=== PATIENT | female | born 1995 | race African-American/Black ===

== ENCOUNTER 2023-05-16 04:38 | Observation (INO) | payer BC, MEDICAID, SELFPAY ==
--- NOTE | ~2023-05-16 | US_ITS ---
Limited pelvic ultrasound. Clinical History: Second trimester , bleeding, placental evaluation Technique: Realtime transabdominal scanning of the pelvis was performed. Color flow Doppler and Doppl er spectral analysis were performed. Findings: The uterus is anteverted, and contains an intrauterine gestation with cephalic lie. h eart rate is 138 bpm. Placenta is anteriorly located. Cervix is closed, measuring 3. Centimeters in l ength. Neither ovary seen. No adnexal mass seen. There is no evidence of free fluid in the cul de sac. Impression: Live intrauterine gestation, with heart rate of 138 bpm and cephalic lie. Anterior placenta. Reviewed, dictated and finalized at location M. Impression: Live intrauterine gestation, with heart rate of 138 bpm and cephalic lie. Anterior placenta.
--- NOTE | 2023-05-16 04:38 | OBADM ---
This patient, Tiffany Pal, admitted to the OB room [facility] for observation. Patient/family oriented to hospital policies and general routines including ID bracelet, bed and alarms, visiting hours, pain management, procedures, bathroom and other care routines, personal items, smoking policy, room service/diet, and visiting hours. Patient/Family are encouraged to report perceived risks to care and to ask questions if they do not understand what they are told or what they should do.
[2023-05-16 05:10] VITALS: TEMP 36.9; BMI 25.2
[2023-05-16 05:12] VITALS: BP 119/67; PULSE 66
[2023-05-16 05:17] LABS: Appearance Urine Turbid (Clear); Bacteria Urine None Seen /hpf; Bilirubin Urine Negative (Negative); Blood Urine 3+ (Negative); Color Urine Yellow (Yellow); Glucose Urine UA Negative (Negative); Ketones Urine Negative (Negative); Leukocyte Esterase Ur 3+ LEU/UL (NEGATIVE); Nitrate Urine Negative (Negative); Non Pathogenic Casts 0-2; Protein Urine 2+ mg/dL (Negative); RBC Urine >100 /hpf (0-2); Specific Grav Ur 1.012 (1.001-1.035); Squamous Epithelial Cell Urine None seen /hpf (Few); WBC Urine >100 /hpf (0-3)
[2023-05-16 05:19] LABS: Add Urine Microscopic? YES
--- NOTE | 2023-05-16 05:28 | PC.NURSE ---
Called Dr. Pike with pt admission. Informed of pt complaining of bleeding. Unsure if bleeding was vaginal or in her urine. Visual inspection of vagina with no bleeding noted. UA results given. No contractions seen on monitor. heart tones 140's and movement audible. Pt states that she has constant pain on her right side that worsens when urinating. Pt complains of frequency of urination and burning. Orders received.
[2023-05-16] MEDS: LACTATED RINGERS 1,000 ML 999 ML IV CONT (06:02)
[2023-05-16] MEDS: PHENAZOPYRIDINE HCL 100 MG TABLET 200 MG PO (06:17)
--- NOTE | 2023-05-16 08:23 | PC.NURSE ---
0710--to US per wheelchair.
--- NOTE | 2023-05-16 08:23 | PC.NURSE ---
0815--Dr. Pike at bedside. SVE performed-closed cervix. Discharge orders given. Macrobid prescription sent to pharmacy.
--- NOTE | 2023-05-16 11:42 | P.HP_ITS ---
H&P: HPI History of Present Illness Date/Time: 05/16/23 11:43 Chief Complaint: Cramping and bleeding Narrative: Patient is a G 3 P 2 at approximately 22 weeks presented to [facility] via ambulance for onset of lower abdominal cramping and had bleeding with urination. She denies fever or chills. She had urinary urgency. She has had a UTI years ago, no h/o frequent UTI or kidney stones. On L and D no significant contractions note. Reassuring heart tones. She states she has been hydrating well. On arrival to L [facility] urine was grossly hematuric and no blood at perineum. UA consistent with UTI. Ultrasound normal placenta. Review of Systems Review of Systems: All systems reviewed & are unremarkable except as noted in HPI and below Constitutional: Constitutional: Reports no additional constitutional complaints Cardiovascular: Cardiovascular: Reports no additional cardiovascular complaints Respiratory: Respiratory: Reports no additional respiratory complaints Gastrointestinal: Gastrointestinal: Reports no additional gastrointestinal complaints Meds Home Medications and Allergies Home Medications Medication Instructions Recorded Confirmed Type nitrofurantoin 100 mg PO Q12H 5 days #10 caps 05/16/23 Rx monohydrate/macrocrystals 100 mg capsule (Macrobid) Allergies Allergy/AdvReac Type Severity Reaction Status Date / Time No Known Allergies Allergy Verified 05/16/23 06:13 Vital Signs Vital Signs - 24 hr 05/16/23 05:12 05/16/23 05:10 05/16/23 05:10 Temperature 98.4 F Pulse Rate 66 Blood Pressure 119/67 Oxygen Delivery Room Air Exam Const: General: comfortable Eyes: General: appearance normal, both eyes and all related structures Neck: Neck: normal visual inspection Resp: Effort & Inspection: normal respiratory effort GI: Inspection: normal to inspection Other: gravid, no fundal tenderness, no CVA tenderness : External Female Exam: normal external appearance Other: cervix closed thick high no blood on glove H&P: Results Labs Labs: Urine 05/16/23 Range/Units 05:01 Urine Color Yellow (Yellow) Urine Appearance Turbid H (Clear) Urine pH 6.0 (5.0-9.0) Ur Specific [place] 1.012 (1.001-1.035) Urine Protein 2+ H (Negative) mg/dL Urine Glucose (UA) Negative (Negative) mg/dL Assessment and Plan Assessment and plan (1) UTI (urinary tract infection): Code(s): N39.0 - Urinary tract infection, site not specified Status: Acute Assessment and Plan: Etiology of the bleeding. IV Fluids. IV antibiotics. She was tolerating food. Pyridium. She was feeling better prior to discharge and sent home on antibiotics and told to make follow up appointment with her provider. (2) Second trimester bleeding: Code(s): O46.92 - Antepartum hemorrhage, unspecified, second trimester Status: Acute Assessment and Plan: Due to UTI. No placental abnormalities or labor. AM H&P [facility] H&P: [id number] Initial Admit High
--- NOTE | 2023-06-12 21:27 | P.PNOB_ITS ---
OB - Triage/Final Diagnosis Visit Information Comments/Additional reasons for admission: I have assessed the risk for this patient, Tiffany Pal, and determined that she would benefit from observation care. Evaluation Laboratory results: Laboratory Tests 05/16/23 05:01 Urine Color Yellow Urine Appearance Turbid H Urine pH 6.0 Ur Specific [place] 1.012 Urine Protein 2+ H Urine Glucose (UA) Negative Urine Ketones Negative Ur Blood (Man) 3+ H Urine Nitrate Negative Urine Bilirubin Negative Urine Urobilinogen 1.0 Ur Leukocyte Esterase 3+ H Urine RBC >100 H Urine WBC >100 H Ur Squamous Epith Cells None seen Urine Bacteria None seen Urine Casts 0-2 Final Diagnosis (1) Second trimester bleeding: Code(s): O46.92 - Antepartum hemorrhage, unspecified, second trimester Status: Acute (2) UTI (urinary tract infection): Code(s): N39.0 - Urinary tract infection, site not specified Status: Acute
== END 2023-05-16 08:42 | disposition home or self-care (01) ==
PROVIDERS: Admitting Provider Obstetrics & Gynecology; Visit Provider Obstetrics & Gynecology
DX: O23.42 Unspecified infection of urinary tract in pregnancy, second trimester (principal); N39.0 Urinary tract infection, site not specified; Z3A.22 22 weeks gestation of pregnancy
CPT/HCPCS: 76815; 81001; 87086; 96374; A9270; G0378; G0379; J0690; J7120